=== PATIENT | male | born 1960 | race Caucasian/White ===

== ENCOUNTER → 2016-04-27 | Outpatient (CLI) | payer BC, OTHER ==
[2016-04-27 10:30] LABS: CREATININE,URINE 72.8
[2016-04-27 13:13] LABS: CREATININE 2.2 mg/dL (0.70-1.50)
[2016-05-01 12:05] LABS: 24 HOUR URINE TOTAL VOLUME 2150 ML
[2016-05-01 12:06] LABS: 24 HOUR URINE PROTEIN CONCENTR 456 mg/dL; 24 HR URINE PROTEIN 9804 mg/DAY (42-225)
== END ==
LOC: LAB 08:46
DX: R80.9 Proteinuria, unspecified (principal)
CPT/HCPCS: 82575; 84156